=== PATIENT | female | born 1970 | race Caucasian/White ===

== ENCOUNTER → 2020-05-11 | Outpatient (CLI) | payer MEDICAID, OTHER ==
[~2020-05-11] MED LIST: ESTR-22 TP; LEVO50TA PO; OXYC-307 PO; SERT50TA PO
[2020-05-11 12:47] LABS: MICROSCOPIC NOT IND
[2020-05-11 12:57] LABS: INTERNATIONAL NORMALIZED RATIO 1.01 (0.93-1.1); PROTHROMBIN TIME 10.7 Seconds (9.6-11.5)
[2020-05-11 12:58] LABS: ALANINE AMINOTRANSFERASE 15 U/L (12-78); ALBUMIN 4.3 g/dL (3.4-5.0); CREATININE 0.89 mg/dL (0.55-1.02)
[2020-05-11 13:00] LABS: ALKALINE PHOSPHATASE 80 U/L (45-117); BILIRUBIN,TOTAL 0.4 mg/dL (0.2-1.0); TOTAL PROTEIN 7.4 g/dL (6.4-8.2)
[2020-05-11 13:14] LABS: ANION GAP 4 mmol/L (5-15); CHLORIDE 110 mmol/L (98-107)
[2020-05-11 13:19] LABS: BASOPHILS % (AUTO) 1 % (0-1); EOSINOPHILS % (AUTO) 1 % (1-7); LYMPHOCYTES % (AUTO) 15 % (22-44); MEAN CORPUSCULAR HEMOGLOBIN 30.6 pg (27.0-34.8); MEAN CORPUSCULAR HGB CONC 32.7 g/dL (32.4-35.8); MEAN PLATELET VOLUME 9.6 fL (7.4-10.4); MONOCYTES % (AUTO) 7 % (2-9); NEUTROPHILS % (AUTO) 76 % (42-75); PLATELET COUNT 290 x10^3/uL (130-400); RED BLOOD COUNT 4.28 x10^6/uL (3.82-5.3); RED CELL DISTRIBUTION WIDTH 12.9 % (9.6-15.2)
[2020-05-11 13:20] LABS: MD NO
== END | disposition home or self-care (01) ==
LOC: STAR 11:53
PROVIDERS: ATTEND Neurological Surgery
DX: Z01.812 Encounter for preprocedural laboratory examination (principal); Z20.828 Contact with and (suspected) exposure to other viral communicable diseases; Z01.811 Encounter for preprocedural respiratory examination; R82.90 Unspecified abnormal findings in urine; R94.31 Abnormal electrocardiogram [ECG] [EKG]; R79.1 Abnormal coagulation profile; M54.17 Radiculopathy, lumbosacral region; M48.061 Spinal stenosis, lumbar region without neurogenic claudication; M43.06 Spondylolysis, lumbar region
CPT/HCPCS: 36415; 71046; 80053; 81003; 85025; 85610; 85730; 87635; 93005

== ENCOUNTER 2020-05-16 09:30 | Inpatient (IN) | payer MEDICAID, OTHER ==
[~2020-05-16] VITALS: Ht 170.2 cm; Wt 78.0 kg
[~2020-05-16 09:30] MED LIST changes: +BACITRACIN 50,000 UNIT ONE; +BUPIVACAINE/PF 0.5% ONE; +EPINEPHRINE 1 MG/ML, 1ML ONE; +VANCOMYCIN 1,000 MG ONE
[2020-05-16] MEDS ORDERED: LACTATED RINGERS 1,000 ML IV SCH (11:00)
[2020-05-16] MEDS ORDERED: CHLORHEXIDINE 15 ML UDC MM ONE (11:00)
[2020-05-16] MEDS ORDERED: tylenol pm PO (11:02)
[2020-05-16] MEDS ORDERED: CHLORHEXIDINE 15 ML UDC ONE (11:07)
[2020-05-16] MEDS ORDERED: MIDAZOLAM 1 MG/ML, 2ML ONE (11:39)
[2020-05-16] MEDS ORDERED: FENTANYL PF 250 MCG/5ML ONE ×2 (11:40→13:42)
[2020-05-16] MEDS ORDERED: LIDOCAINE GEL 2%, 5ML ONE (11:41)
[2020-05-16 11:58] LABS: HCG UR SG 1.028 (1.003-1.030)
[2020-05-16] MEDS ORDERED: PROMETHAZINE 25 MG/ML, 1ML IVPush PRN (12:00)
[2020-05-16] MEDS ORDERED: hydrALAzine 20 MG/ML, 1ML IV PRN (12:00)
[2020-05-16] MEDS ORDERED: HYDROcodone/APAP 7.5-325MG/15ML UDC PO PRN (12:00)
[2020-05-16] MEDS ORDERED: LABETALOL 5MG/ML, 20ML IV PRN (12:00)
[2020-05-16] MEDS ORDERED: HALOPERIDOL 5 MG/ML IV PRN (12:00)
[2020-05-16] MEDS ORDERED: METHOCARBAMOL 1,000 MG in DEXTROSE 5% 100 ML IV PRN (12:00)
[2020-05-16] MEDS ORDERED: MEPERIDINE/PF 25MG/0.5ML IVPush PRN (12:00)
[2020-05-16] MEDS ORDERED: DIPHENHYDRAMINE 50 MG/ML, 1ML IVPush PRN ×2 (12:00→15:30)
[2020-05-16] MEDS ORDERED: METOPROLOL 1 MG/ML, 5ML ONE (14:14)
[2020-05-16] MEDS ORDERED: ONDANSETRON 2MG/ML, 2ML ONE (14:48)
[2020-05-16] MEDS ORDERED: SUCCINYLCHOLINE 20 MG/ML, 10ML ONE (14:48)
[2020-05-16] MEDS ORDERED: ROCURONIUM 10MG/ML,5ML ONE (14:48)
[2020-05-16] MEDS ORDERED: CEFAZOLIN 1,000 MG ONE (14:48)
[2020-05-16] MEDS ORDERED: PROPOFOL 10 MG/ML, 20ML ONE (14:48)
[2020-05-16] MEDS ORDERED: GLYCOPYRROLATE 0.2MG/1ML, 5ML ONE (14:48)
[2020-05-16] MEDS ORDERED: NEOSTIGMINE 1 MG/ML, 10ML ONE (14:48)
[2020-05-16] MEDS ORDERED: DEXAMETHASONE 4 MG/ML, 1ML ONE (14:48)
[2020-05-16] MEDS ORDERED: OXYcodone 5 MG/5 ML ORAL.SOL UDC ONE (15:05)
[2020-05-16] MEDS ORDERED: DIAZEPAM 5 MG/ML, 2ML ONE (15:05)
[2020-05-16] MEDS ORDERED: FENTANYL PF 100 MCG/2ML ONE ×2 (15:05→15:15)
[2020-05-16] MEDS: FENTANYL PF 100 MCG/2ML IV PRN ×4 (15:07→15:25)
[2020-05-16] MEDS ORDERED: HALOPERIDOL 5 MG/ML ONE (15:09)
[2020-05-16] MEDS ORDERED: HYDROmorphone 2 MG/ML, 1ML ONE (15:15)
[2020-05-16] MEDS ORDERED: MEPERIDINE/PF 25MG/ML,1ML ONE (15:16)
[2020-05-16] MEDS: HYDROmorphone 1 MG/ML, 1ML INJ IVPush PRN ×6 (15:20→21:19)
[2020-05-16] MEDS ORDERED: ONDANSETRON 2MG/ML, 2ML IVPush PRN (15:30)
[2020-05-16] MEDS ORDERED: PHARMACY MAY ADJ FOR RENAL FX MC PRN (15:30)
[2020-05-16] MEDS ORDERED: PROMETHAZINE 25 MG/ML, 1ML IM PRN (15:30)
[2020-05-16] MEDS ORDERED: METHOCARBAMOL 1,000 MG in DEXTROSE 5% 100 ML IV ONE (15:30)
[2020-05-16] MEDS ORDERED: BISACODYL 10 MG SUPP PR PRN (15:30)
[2020-05-16] MEDS ORDERED: MAGNESIUM HYDROXIDE 8%, 30ML UDC PO PRN (15:30)
[2020-05-16] MEDS ORDERED: HYDROcodone/APAP 5/325 TABLET PO PRN (15:30)
[2020-05-16] MEDS ORDERED: ACETAMINOPHEN 325 MG TABLET PO PRN (15:30)
[2020-05-16] MEDS ORDERED: SENNA/DOCUSATE TABLET PO PRN (15:30)
[2020-05-16] MEDS ORDERED: OXYcodone 5 MG/5 ML ORAL.SOL UDC PO PRN (16:00)
[2020-05-16] MEDS ORDERED: DIAZEPAM 5 MG/ML, 2ML IVPush PRN (16:00)
[2020-05-16 16:32] VITALS: BP 127/74
[2020-05-16] MEDS: D5%-0.9% NACL+KCL 20MEQ 1,000 ML IV SCH (17:25)
[2020-05-16] MEDS: OXYcodone/APAP 5/325MG TABLET PO PRN (20:15)
[2020-05-16 20:19] VITALS: BP 118/71
[2020-05-16] MEDS: CEFAZOLIN PMX 1GM/50ML 50 ML IVPB SCH (21:18)
[2020-05-16] MEDS: SODIUM CHLORIDE FLUSH 10ML SYR IVF SCH (21:19)
[2020-05-16 23:53] VITALS: BP 134/58
[2020-05-17] MEDS: METHOCARBAMOL 750 MG TABLET PO PRN
[2020-05-17 03:50] VITALS: BP 121/71
[2020-05-17] MEDS: OXYcodone/APAP 5/325MG TABLET PO PRN ×3 (04:08→08:25)
[2020-05-17] MEDS: D5%-0.9% NACL+KCL 20MEQ 1,000 ML IV SCH ×3 (06:13→21:30)
[2020-05-17] MEDS: LEVOTHYROXINE 50 MCG TABLET PO SCH (06:14)
[2020-05-17] MEDS: CEFAZOLIN PMX 1GM/50ML 50 ML IVPB SCH ×2 (06:14→18:28)
[2020-05-17] MEDS ORDERED: BUPIVACAINE/PF 0.5% ONE (06:16)
[2020-05-17] MEDS ORDERED: VANCOMYCIN 1,000 MG ONE (06:16)
[2020-05-17] MEDS ORDERED: EPINEPHRINE 1 MG/ML, 1ML ONE (06:16)
[2020-05-17] MEDS ORDERED: BACITRACIN 50,000 UNIT ONE (06:16)
[2020-05-17 06:50] LABS: ANION GAP 5 mmol/L (5-15); CALCIUM 9.1 mg/dL (8.5-10.1); CHLORIDE 112 mmol/L (98-107); CREATININE 0.85 mg/dL (0.55-1.02)
[2020-05-17 07:01] LABS: BASOPHILS % (AUTO) 0 % (0-1); EOSINOPHILS % (AUTO) 0 % (1-7); LYMPHOCYTES % (AUTO) 10 % (22-44); MEAN CORPUSCULAR HEMOGLOBIN 30.5 pg (27.0-34.8); MEAN CORPUSCULAR HGB CONC 32.6 g/dL (32.4-35.8); MEAN PLATELET VOLUME 9.3 fL (7.4-10.4); MONOCYTES % (AUTO) 9 % (2-9); NEUTROPHILS % (AUTO) 81 % (42-75); PLATELET COUNT 290 x10^3/uL (130-400); RED BLOOD COUNT 3.65 x10^6/uL (3.82-5.3); RED CELL DISTRIBUTION WIDTH 12.8 % (9.6-15.2)
[2020-05-17 07:12] VITALS: BP 119/72
[2020-05-17 08:24] LABS: MD SCAN
[2020-05-17] MEDS: SERTRALINE 50MG TABLET PO SCH (08:25)
[2020-05-17] MEDS: SODIUM CHLORIDE FLUSH 10ML SYR IVF SCH ×2 (08:26→21:00)
[2020-05-17] MEDS ORDERED: MORPHINE SULFATE 4 MG/ML, 1ML IVPush PRN (09:00)
[2020-05-17] MEDS ORDERED: CHLORHEXIDINE 15 ML UDC ONE (10:30)
[2020-05-17] MEDS ORDERED: MIDAZOLAM 1 MG/ML, 2ML ONE (10:42)
[2020-05-17] MEDS ORDERED: FENTANYL PF 250 MCG/5ML ONE ×2 (10:43→11:45)
[2020-05-17] MEDS ORDERED: ACETAMINOPHEN 500 MG TABLET PO ONE (11:00)
[2020-05-17] MEDS ORDERED: BUPIVACAINE/PF 0.5% INFIL ONE (11:27)
[2020-05-17] MEDS ORDERED: VANCOMYCIN 1,000 MG IM ONE (11:27)
[2020-05-17] MEDS ORDERED: ALBUTEROL SULFATE 2.5 MG/3 ML NPPB PRN (11:30)
[2020-05-17] MEDS ORDERED: OXYcodone 5 MG/5 ML ORAL.SOL UDC PO PRN (11:30)
[2020-05-17] MEDS ORDERED: PROMETHAZINE 12.5 MG SUPP PR PRN (11:30)
[2020-05-17] MEDS ORDERED: LABETALOL 5MG/ML, 20ML IV PRN (11:30)
[2020-05-17] MEDS ORDERED: hydrALAzine 20 MG/ML, 1ML IV PRN (11:30)
[2020-05-17] MEDS ORDERED: PROMETHAZINE 25 MG/ML, 1ML IVPush PRN (11:30)
[2020-05-17] MEDS ORDERED: MEPERIDINE/PF 25MG/0.5ML IVPush PRN (11:30)
[2020-05-17] MEDS ORDERED: ONDANSETRON 2MG/ML, 2ML IVPush PRN ×2 (11:30→13:30)
[2020-05-17] MEDS ORDERED: DIAZEPAM 5 MG/ML, 2ML IVPush PRN (11:30)
[2020-05-17] MEDS ORDERED: DIPHENHYDRAMINE 50 MG/ML, 1ML IVPush PRN ×2 (11:30→13:30)
[2020-05-17] MEDS ORDERED: MIDAZOLAM 1 MG/ML, 2ML IV PRN (11:30)
[2020-05-17] MEDS ORDERED: EPHEDRINE 50 MG/ML, 1ML IVPush PRN (11:30)
[2020-05-17] MEDS ORDERED: DIAZEPAM 5 MG/ML, 2ML ONE (13:12)
[2020-05-17] MEDS ORDERED: HYDROmorphone 2 MG/ML, 1ML ONE (13:12)
[2020-05-17] MEDS ORDERED: FENTANYL PF 100 MCG/2ML ONE (13:12)
[2020-05-17] MEDS ORDERED: OXYcodone 5 MG/5 ML ORAL.SOL UDC ONE (13:12)
[2020-05-17] MEDS ORDERED: MEPERIDINE/PF 25MG/ML,1ML ONE (13:13)
[2020-05-17] MEDS: FENTANYL PF 100 MCG/2ML IV PRN ×2 (13:21→13:27)
[2020-05-17] MEDS ORDERED: MAGNESIUM HYDROXIDE 8%, 30ML UDC PO PRN (13:30)
[2020-05-17] MEDS ORDERED: PROMETHAZINE 25 MG/ML, 1ML IM PRN (13:30)
[2020-05-17] MEDS ORDERED: METHOCARBAMOL 1,000 MG in DEXTROSE 5% 100 ML IV ONE (13:30)
[2020-05-17] MEDS ORDERED: BISACODYL 10 MG SUPP PR PRN (13:30)
[2020-05-17] MEDS ORDERED: ENOXAPARIN 40 MG/0.4 ML SQ SCH (13:30)
[2020-05-17] MEDS ORDERED: SENNA/DOCUSATE TABLET PO PRN (13:30)
[2020-05-17] MEDS ORDERED: PHARMACY MAY ADJ FOR RENAL FX MC PRN (13:30)
[2020-05-17] MEDS: HYDROmorphone 1 MG/ML, 1ML INJ IVPush PRN ×4 (13:34→14:05)
[2020-05-17] MEDS ORDERED: D5%-0.9% NACL+KCL 20MEQ 1,000 ML IV SCH (13:40)
[2020-05-17] MEDS ORDERED: PROMETHAZINE 25 MG/ML, 1ML ONE (13:55)
[2020-05-17] MEDS ORDERED: LABETALOL 5MG/ML, 20ML ONE (14:01)
[2020-05-17 14:35] VITALS: BP 135/83
[2020-05-17] MEDS: OXYcodone/APAP 10/325MG TABLET PO PRN ×2 (17:16→21:29)
[2020-05-17 19:44] VITALS: BP 120/71
[2020-05-18 00:34] VITALS: BP 117/72
[2020-05-18] MEDS: METHOCARBAMOL 750 MG TABLET PO PRN ×3 (00:57→20:56)
[2020-05-18] MEDS: OXYcodone/APAP 10/325MG TABLET PO PRN ×6 (01:29→20:56)
[2020-05-18] MEDS: CEFAZOLIN PMX 1GM/50ML 50 ML IVPB SCH (02:58)
[2020-05-18 04:07] VITALS: BP 104/65
[2020-05-18] MEDS: LEVOTHYROXINE 50 MCG TABLET PO SCH (05:35)
[2020-05-18] MEDS: ENOXAPARIN 40 MG/0.4 ML SQ SCH (05:35)
[2020-05-18 07:30] VITALS: BP 104/54
[2020-05-18] MEDS: D5%-0.9% NACL+KCL 20MEQ 1,000 ML IV SCH ×2 (07:30→17:30)
[2020-05-18] MEDS: SODIUM CHLORIDE FLUSH 10ML SYR IVF SCH ×2 (09:00→20:56)
[2020-05-18] MEDS: SERTRALINE 50MG TABLET PO SCH (09:13)
[2020-05-18 13:30] VITALS: BP 116/65
[2020-05-18 19:45] VITALS: BP 98/60
[2020-05-19] MEDS: OXYcodone/APAP 10/325MG TABLET PO PRN ×3 (00:52→08:52)
[2020-05-19 02:11] VITALS: BP 104/54
[2020-05-19] MEDS: D5%-0.9% NACL+KCL 20MEQ 1,000 ML IV SCH ×2 (03:30→10:34)
[2020-05-19] MEDS: LEVOTHYROXINE 50 MCG TABLET PO SCH (04:59)
[2020-05-19] MEDS: METHOCARBAMOL 750 MG TABLET PO PRN (04:59)
[2020-05-19] MEDS: ENOXAPARIN 40 MG/0.4 ML SQ SCH (05:00)
[2020-05-19 07:13] VITALS: BP 103/56
[2020-05-19] MEDS: SERTRALINE 50MG TABLET PO SCH (07:54)
[2020-05-19] MEDS: SODIUM CHLORIDE FLUSH 10ML SYR IVF SCH (08:15)
[2020-05-19] MEDS ORDERED: OXYC-307 PO (08:47)
[2020-05-19] MEDS ORDERED: METH750T87 PO (08:47)
== END 2020-05-19 11:53 | disposition home or self-care (01) | DRG 455 ==
LOC: ORIP 10:32 → 4NE 16:30 → DCLOUNGE 05-19 11:41
PROVIDERS: ADMIT Neurological Surgery; ATTEND Neurological Surgery
PROC: 0SB20ZZ Excision of Lumbar Vertebral Disc, Open Approach (ICD-10-PCS; 2020-05-16)
PROC: 0SG10AJ Fusion of 2 or more Lumbar Vertebral Joints with Interbody Fusion Device, Posterior Approach, Anterior Column, Open Approach (ICD-10-PCS; principal; 2020-05-16 12:30)
PROC: 0SG1071 Fusion of 2 or more Lumbar Vertebral Joints with Autologous Tissue Substitute, Posterior Approach, Posterior Column, Open Approach (ICD-10-PCS; 2020-05-17)
PROC: 01NB0ZZ Release Lumbar Nerve, Open Approach (ICD-10-PCS; 2020-05-17)
PROC: 01NR0ZZ Release Sacral Nerve, Open Approach (ICD-10-PCS; 2020-05-17)
DX: M48.061 Spinal stenosis, lumbar region without neurogenic claudication (principal); M41.9 Scoliosis, unspecified; M51.16 Intervertebral disc disorders with radiculopathy, lumbar region; Z96.642 Presence of left artificial hip joint; M41.86 Other forms of scoliosis, lumbar region
CPT/HCPCS: 36415; 72100; S0020; 72131; 80048; 81025; 85025; 86850; 86900; C1713; C1776; G0378; J0171; J0690; J1100; J1170; J1650; J2175; J2250; J2405; J2550; J2704; J2710; J3010; J3360; J3370; C1763; J0330; J1630; J2270; J2800; J3480; J7120

== ENCOUNTER 2021-03-26 08:29 | Outpatient (CLI) | payer OTHER ==
[~2021-03-26 08:29] MED LIST changes: -BACITRACIN 50,000 UNIT ONE; -BUPIVACAINE/PF 0.5% ONE; -EPINEPHRINE 1 MG/ML, 1ML ONE; +METH750T87 PO; -OXYC-307 PO; +OXYC-501 PO; -VANCOMYCIN 1,000 MG ONE; +tylenol pm PO
== END 2021-03-26 23:59 | disposition home or self-care (01) ==
LOC: CFH 08:29
PROVIDERS: ATTEND Physician Assistant Surgical
DX: M81.8 Other osteoporosis without current pathological fracture (principal)
CPT/HCPCS: 77080

== ENCOUNTER 2021-03-30 11:03 | Outpatient (CLI) | payer OTHER ==
[2021-03-30] MEDS ORDERED: APPLE CIDER VINEGAR PO (11:43)
[2021-03-30] MEDS ORDERED: IBUP-1223 PO (11:43)
[2021-03-30] MEDS ORDERED: VITAMIN B12 PO (11:43)
[2021-03-30] MEDS ORDERED: PANT40TA6 PO (11:43)
[2021-03-30] MEDS ORDERED: OXYC-306 PO (11:43)
[2021-03-30 12:03] LABS: ANION GAP 6 mmol/L (5-15); CALCIUM 9.2 mg/dL (8.5-10.1); CHLORIDE 109 mmol/L (98-107); CREATININE 0.83 mg/dL (0.55-1.02)
[2021-03-30 12:04] LABS: BASOPHILS % (AUTO) 1 % (0-1); EOSINOPHILS % (AUTO) 1 % (1-7); LYMPHOCYTES % (AUTO) 13 % (22-44); MEAN CORPUSCULAR HEMOGLOBIN 31.6 pg (27.0-34.8); MEAN PLATELET VOLUME 9.7 fL (7.4-10.4); MONOCYTES % (AUTO) 7 % (2-9); NEUTROPHILS % (AUTO) 78 % (42-75); PLATELET COUNT 233 x10^3/uL (130-400); RED BLOOD COUNT 3.94 x10^6/uL (3.82-5.3); RED CELL DISTRIBUTION WIDTH 13.7 % (9.6-15.2)
[2021-03-30 12:05] LABS: INTERNATIONAL NORMALIZED RATIO 1.04 (0.93-1.1); PROTHROMBIN TIME 11.1 Seconds (9.6-11.5)
[2021-03-30 12:10] LABS: MICROSCOPIC NOT IND
== END 2021-03-30 23:59 | disposition home or self-care (01) ==
LOC: STAR 11:03
PROVIDERS: ATTEND Neurological Surgery
DX: Z01.812 Encounter for preprocedural laboratory examination (principal); Z20.822 Contact with and (suspected) exposure to COVID-19; Z01.818 Encounter for other preprocedural examination; Z01.811 Encounter for preprocedural respiratory examination; Z01.810 Encounter for preprocedural cardiovascular examination; R79.1 Abnormal coagulation profile; R82.90 Unspecified abnormal findings in urine; R94.31 Abnormal electrocardiogram [ECG] [EKG]; M51.86 Other intervertebral disc disorders, lumbar region; M54.16 Radiculopathy, lumbar region; M47.896 Other spondylosis, lumbar region
CPT/HCPCS: 36415; 71046; 80048; 81003; 85025; 85610; 85730; 87635; 93005

== ENCOUNTER 2021-04-05 07:16 | Day surgery (SDC) | payer OTHER ==
[~2021-04-05] VITALS: Ht 170.2 cm; Wt 82.4 kg
[~2021-04-05 07:16] MED LIST changes: +APPLE CIDER VINEGAR PO; +BUPIVACAINE/PF 0.5% ONE; +CEFAZOLIN 1,000 MG ONE; +EPINEPHRINE 1 MG/ML, 1ML ONE; +IBUP-1223 PO; +OXYC-306 PO; +PANT40TA6 PO; +VANCOMYCIN 1,000 MG ONE; +VITAMIN B12 PO
[2021-04-05 07:25] VITALS: BP 138/77
[2021-04-05] MEDS ORDERED: CHLORHEXIDINE 15 ML UDC ONE (07:29)
[2021-04-05] MEDS ORDERED: LACTATED RINGERS 1,000 ML IV SCH (07:30)
[2021-04-05] MEDS ORDERED: CHLORHEXIDINE 15 ML UDC PO ONE (07:30)
[2021-04-05] MEDS ORDERED: MIDAZOLAM 1 MG/ML, 2ML ONE (08:06)
[2021-04-05] MEDS ORDERED: FENTANYL PF 250 MCG/5ML ONE (08:07)
[2021-04-05] MEDS ORDERED: BUPIVACAINE/PF-EPI 0.5% 1:200K INFIL ONE (09:20)
[2021-04-05] MEDS ORDERED: HYDROmorphone 2 MG/ML, 1ML ONE ×3 (09:26→12:14)
[2021-04-05] MEDS ORDERED: PROMETHAZINE 25 MG/ML, 1ML IVPush PRN (09:30)
[2021-04-05] MEDS ORDERED: MIDAZOLAM 1 MG/ML, 2ML IV PRN (09:30)
[2021-04-05] MEDS ORDERED: ACETAMINOPHEN 325 MG TABLET PO PRN (09:30)
[2021-04-05] MEDS ORDERED: MEPERIDINE/PF 25MG/0.5ML IVPush PRN (09:30)
[2021-04-05] MEDS ORDERED: METHOCARBAMOL 1,000 MG in DEXTROSE 5% 100 ML IV PRN (09:30)
[2021-04-05] MEDS ORDERED: ALBUTEROL SULFATE 2.5 MG/3 ML NPPB PRN (09:30)
[2021-04-05] MEDS ORDERED: LABETALOL 5MG/ML, 20ML IV PRN (09:30)
[2021-04-05] MEDS ORDERED: OXYcodone 5 MG/5 ML ORAL.SOL UDC PO PRN (09:30)
[2021-04-05] MEDS ORDERED: DEXAMETHASONE 4 MG/ML, 1ML ONE (09:50)
[2021-04-05] MEDS ORDERED: LIDOCAINE-MPF 2% ,5ML ONE (09:50)
[2021-04-05] MEDS ORDERED: ROCURONIUM 10MG/ML,5ML ONE (09:50)
[2021-04-05] MEDS ORDERED: CEFAZOLIN 1,000 MG ONE (09:50)
[2021-04-05] MEDS ORDERED: SUCCINYLCHOLINE 20 MG/ML, 10ML ONE (09:50)
[2021-04-05] MEDS ORDERED: PROPOFOL 10 MG/ML, 20ML ONE (09:50)
[2021-04-05] MEDS ORDERED: ONDANSETRON 2MG/ML, 2ML ONE (09:50)
[2021-04-05] MEDS ORDERED: OXYC1TAB18 PO (10:05)
[2021-04-05] MEDS ORDERED: FENTANYL PF 100 MCG/2ML ONE (10:14)
[2021-04-05] MEDS ORDERED: OXYcodone 5 MG/5 ML ORAL.SOL UDC ONE (10:15)
[2021-04-05] MEDS: FENTANYL PF 100 MCG/2ML IV PRN ×2 (10:20→10:25)
[2021-04-05] MEDS ORDERED: ACETAMINOPHEN 650 MG/20.3 ML UDC ONE (10:31)
[2021-04-05] MEDS: HYDROmorphone 1 MG/ML, 1ML INJ IVPush PRN ×2 (10:38→12:20)
== END 2021-04-05 13:25 | disposition home or self-care (01) ==
LOC: OUT 07:16
PROVIDERS: ATTEND Neurological Surgery
DX: M51.16 Intervertebral disc disorders with radiculopathy, lumbar region (principal); M48.061 Spinal stenosis, lumbar region without neurogenic claudication; M41.86 Other forms of scoliosis, lumbar region; K21.9 Gastro-esophageal reflux disease without esophagitis; E03.9 Hypothyroidism, unspecified; G43.909 Migraine, unspecified, not intractable, without status migrainosus; F41.9 Anxiety disorder, unspecified; F12.90 Cannabis use, unspecified, uncomplicated; Z79.890 Hormone replacement therapy; Z79.891 Long term (current) use of opiate analgesic; Z79.899 Other long term (current) drug therapy; Z88.8 Allergy status to other drugs, medicaments and biological substances
CPT/HCPCS: 72100; 95938; 95941; J0171; J0690; J1100; J1170; J2250; J2405; J2704; J3010; J3370; J0330; J2800; J7120